=== PATIENT | female | born 1935 | race African-American/Black ===

== ENCOUNTER 2020-06-20 13:07 | Inpatient (IN) | payer MEDICAID, MEDICARE ==
[~2020-06-20] VITALS: Ht 167.6 cm; Wt 62.6 kg
[~2020-06-20 13:07] MED LIST: ALBUL; AMLO5TAB4; ASPI81TA47; ATROVUD; AZIT500T3; MELO-106; METF-414; METO-539; PERCOGESIC; PREDNISONE; QVAR80; SITA100T11; VALS1TAB30; ZOLP5TAB2
[2020-06-20 14:21] LABS: BASOPHILS % 0.5 % (0.0-2.0); EOSINOPHILS % 0.2 % (0.0-5.0); HEMATOCRIT. 26.5 % (36.0-48.0); HEMOGLOBIN. 7.8 g/dL (12.0-16.0); LYMPHOCYTES % 44.1 % (20.0-50.0); MEAN CORPUSCULAR HEMOGLOBIN 21.2 pg (28.0-32.0); MEAN CORPUSCULAR VOLUME 72.3 fL (81.0-99.0); MEAN PLATELET VOLUME 9.8 fl (7.4-10.4); MONOCYTES % 7.9 % (2.0-8.0); NEUTROPHILS % 47.3 % (40.0-76.0); PLATELET 169 x1000/uL (130-400); RED BLOOD CELL COUNT 3.66 mill/uL (4.2-5.4)
[2020-06-20 14:26] LABS: CHLORIDE 108 mEq/L (98-107)
[2020-06-20 14:32] LABS: INR 1.5; PROTHROMBIN TIME 15.1 sec (9.6-11.0)
[2020-06-20] MEDS ORDERED: FUROSEMIDE 20MG/2ML VIAL IVP ONE (15:00)
[2020-06-20 15:16] LABS: PLATELET ESTIMATE NORMAL
[2020-06-20 23:00] VITALS: BP 169/93
[2020-06-21] VITALS (11 sets, daily range): BP systolic 134–170; BP diastolic 60–98
[2020-06-21] MEDS ORDERED: HYDROCODONE/ACETAMINOPHEN 5/325MG TABLET PO PRN
[2020-06-21] MEDS ORDERED: ACETAMINOPHEN 325MG TABLET PO PRN
[2020-06-21] MEDS ORDERED: ONDANSETRON HCL 4MG/2ML INJ IV PRN
[2020-06-21] MEDS ORDERED: IPRATROPIUM/ALBUTEROL 0.5-3(2.5)MG/3ML NEB HHN PRN
[2020-06-21] MEDS ORDERED: DEXTROSE 50% WATER 50ML SYRINGE IV PRN (05:45)
[2020-06-21] MEDS ORDERED: CLONIDINE 0.1MG TABLET PO PRN (05:45)
[2020-06-21] MEDS: BLOOD SUGAR DIAGNOSTIC STRIP TEST SCH ×4 (06:29→21:00)
[2020-06-21] MEDS: INSULIN LISPRO 100 UNITS/ML SUBCUT SCH ×4 (06:29→21:00)
[2020-06-21 07:52] LABS: HEMATOCRIT. 26.9 % (36.0-48.0); HEMOGLOBIN. 7.8 g/dL (12.0-16.0); MEAN CORPUSCULAR HEMOGLOBIN 20.9 pg (28.0-32.0); RED BLOOD CELL COUNT 3.74 mill/uL (4.2-5.4); RED CELL DISTRIBUTION WIDTH 26.3 % (11.6-14.6)
[2020-06-21 08:01] LABS: CHLORIDE 106 mEq/L (98-107)
[2020-06-21 08:13] LABS: HDL CHOLESTEROL 35 mg/dL (40-59)
[2020-06-21 08:15] LABS: LDL CHOLESTEROL 70 mg/dL (5-100)
[2020-06-21 08:16] LABS: CREATINE KINASE 58 IU/L (26-192)
[2020-06-21 08:19] LABS: T4 FREE 1.11 ng/dL (0.76-1.46)
[2020-06-21] MEDS ORDERED: ASPIRIN 81MG EC TABLET PO SCH (09:00)
[2020-06-21] MEDS ORDERED: POTASSIUM CHLORIDE 20MEQ TABLET SR PO NR (11:30)
[2020-06-21 11:56] LABS: TOTAL IRON BINDING CAPACITY 433 ug/dL (250-450)
[2020-06-21] MEDS: AMLODIPINE 5MG TABLET PO SCH ×2 (14:10→21:36)
[2020-06-21] MEDS: FERROUS SULFATE 325MG TABLET PO SCH ×2 (14:10→17:33)
[2020-06-21 14:42] LABS: NUCLEATED RED BLOOD CELLS 2 /100 WBC
[2020-06-21 14:45] LABS: MEAN PLATELET VOLUME 10.2 fl (7.4-10.4); PLATELET 178 x1000/uL (130-400); PLATELET ESTIMATE NORMAL
[2020-06-21] MEDS ORDERED: MORPHINE SULFATE 2 MG/ML CPJ (NOT FOR IM USE) IV PRN (16:00)
[2020-06-21] MEDS ORDERED: POTASSIUM CHLORIDE 20MEQ TABLET SR PO SCH (18:00)
[2020-06-21] MEDS ORDERED: LEVOFLOXACIN 500MG PREMIX 100 ML IV NR (18:00)
[2020-06-21] MEDS: DEXT 5%/0.45% NACL 1000ML 1,000 ML IV SCH (18:51)
[2020-06-21 21:27] LABS: HEMATOCRIT 30.3 % (36.0-48.0); HEMOGLOBIN 9.1 g/dL (12.0-16.0)
[2020-06-21 21:36] LABS: INR 1.5; PROTHROMBIN TIME 15.6 sec (9.6-11.0)
[2020-06-21] MEDS: PANTOPRAZOLE SODIUM 40 MG/VIAL IV SCH (21:36)
[2020-06-22] VITALS (9 sets, daily range): BP systolic 103–169; BP diastolic 55–90
[2020-06-22 06:53] LABS: INR 1.4; PARTIAL THROMBOPLASTIN TIME 26.8 sec (23.4-31.0); PROTHROMBIN TIME 14.1 sec (9.6-11.0)
[2020-06-22 07:02] LABS: HEMATOCRIT. 31.4 % (36.0-48.0); HEMOGLOBIN. 9.3 g/dL (12.0-16.0); MEAN CORPUSCULAR VOLUME 74.2 fL (81.0-99.0); RED BLOOD CELL COUNT 4.23 mill/uL (4.2-5.4); RED CELL DISTRIBUTION WIDTH 25.3 % (11.6-14.6)
[2020-06-22 07:10] LABS: CHLORIDE 108 mEq/L (98-107)
[2020-06-22] MEDS: BLOOD SUGAR DIAGNOSTIC STRIP TEST SCH ×4 (07:38→21:33)
[2020-06-22] MEDS: INSULIN LISPRO 100 UNITS/ML SUBCUT SCH ×4 (07:38→21:00)
[2020-06-22] MEDS: AMLODIPINE 5MG TABLET PO SCH ×2 (08:21→21:11)
[2020-06-22] MEDS: FERROUS SULFATE 325MG TABLET PO SCH ×2 (08:21→16:00)
[2020-06-22] MEDS: PANTOPRAZOLE SODIUM 40 MG/VIAL IV SCH ×2 (08:53→21:12)
[2020-06-22] MEDS: ENALAPRIL 1.25MG/ML VIAL 1ML IV PRN ×2 (08:54→09:28)
[2020-06-22 09:02] LABS: CLARITY URINE CLEAR (CLEAR); COLOR URINE DARK YELLOW (YELLOW); KETONES URINE NEGATIVE (NEGATIVE); LEUKOCYTE ESTERASE URINE NEGATIVE (NEGATIVE); NITRITE URINE NEGATIVE (NEGATIVE); OCCULT BLOOD URINE NEGATIVE (NEGATIVE); PROTEIN URINE 1+ (NEGATIVE); SPECIFIC GRAVITY URINE 1.017 (1.005-1.030)
[2020-06-22] MEDS: DEXT 5%/0.45% NACL 1000ML 1,000 ML IV SCH ×2 (10:01→23:47)
[2020-06-22 11:39] LABS: PLATELET 167 x1000/uL (130-400)
[2020-06-22 11:42] LABS: PLATELET ESTIMATE NORMAL
[2020-06-22] MEDS ORDERED: PHYTONADIONE 10MG/ML AMP SUBCUT SCH (13:30)
[2020-06-22] MEDS: LEVOFLOXACIN 250MG PREMIX 50 ML IV SCH (14:18)
[2020-06-23 04:00] VITALS: BP 146/69
[2020-06-23 06:18] LABS: HEMATOCRIT. 30.9 % (36.0-48.0); HEMOGLOBIN. 9.1 g/dL (12.0-16.0); MEAN CORPUSCULAR HEMOGLOBIN 22.1 pg (28.0-32.0); MEAN CORPUSCULAR VOLUME 74.8 fL (81.0-99.0); PLATELET 164 x1000/uL (130-400); RED BLOOD CELL COUNT 4.13 mill/uL (4.2-5.4); RED CELL DISTRIBUTION WIDTH 26.1 % (11.6-14.6)
[2020-06-23 06:23] LABS: INR 1.3; PROTHROMBIN TIME 13.5 sec (9.6-11.0)
[2020-06-23] MEDS: BLOOD SUGAR DIAGNOSTIC STRIP TEST SCH ×4 (06:26→21:00)
[2020-06-23] MEDS: INSULIN LISPRO 100 UNITS/ML SUBCUT SCH ×4 (06:26→21:00)
[2020-06-23 07:17] LABS: CHLORIDE 109 mEq/L (98-107)
[2020-06-23 08:00] VITALS: BP 149/80
[2020-06-23] MEDS: PANTOPRAZOLE SODIUM 40 MG/VIAL IV SCH ×2 (09:35→20:47)
[2020-06-23] MEDS: FERROUS SULFATE 325MG TABLET PO SCH ×2 (09:35→16:47)
[2020-06-23] MEDS: AMLODIPINE 5MG TABLET PO SCH ×2 (09:36→20:48)
[2020-06-23 10:10] LABS: NUCLEATED RED BLOOD CELLS 1 /100 WBC; PLATELET ESTIMATE NORMAL
[2020-06-23] MEDS ORDERED: MIDAZOLAM HCL 5 MG/5 ML VIAL ONE (11:01)
[2020-06-23] MEDS ORDERED: FENTANYL CITRATE/PF 50MCG/ML 2ML VIAL ONE (11:01)
[2020-06-23] MEDS ORDERED: FENTANYL CITRATE/PF 50MCG/ML 2ML VIAL IV PRN (11:09)
[2020-06-23] MEDS ORDERED: MIDAZOLAM HCL 5 MG/5 ML VIAL IV PRN (11:10)
[2020-06-23] MEDS ORDERED: MAGNESIUM 2 G PREMIX 50 ML IV SCH (11:30)
[2020-06-23 12:00] VITALS: BP 152/79
[2020-06-23] MEDS: SUCRALFATE 1 G/10 ML UDC PO SCH ×3 (12:45→20:48)
[2020-06-23] MEDS: LEVOFLOXACIN 250MG PREMIX 50 ML IV SCH (13:17)
[2020-06-23] MEDS: DEXT 5%/0.45% NACL 1000ML 1,000 ML IV SCH (13:17)
[2020-06-23 16:00] VITALS: BP 155/77
[2020-06-23 20:00] VITALS: BP 115/58
[2020-06-24] VITALS (7 sets, daily range): BP systolic 120–158; BP diastolic 66–80
[2020-06-24] MEDS: DEXT 5%/0.45% NACL 1000ML 1,000 ML IV SCH ×2 (01:10→15:40)
[2020-06-24] MEDS: INSULIN LISPRO 100 UNITS/ML SUBCUT SCH ×3 (06:02→17:21)
[2020-06-24] MEDS: BLOOD SUGAR DIAGNOSTIC STRIP TEST SCH ×3 (06:03→17:20)
[2020-06-24] MEDS: SUCRALFATE 1 G/10 ML UDC PO SCH ×3 (06:10→17:20)
[2020-06-24 06:16] LABS: CHLORIDE 107 mEq/L (98-107)
[2020-06-24 06:24] LABS: HEMATOCRIT 31.5 % (36.0-48.0); HEMOGLOBIN 9.3 g/dL (12.0-16.0); MEAN CORPUSCULAR HEMOGLOBIN 22.2 pg (28.0-32.0); MEAN CORPUSCULAR VOLUME 74.9 fL (81.0-99.0); RED BLOOD CELL COUNT 4.21 mill/uL (4.2-5.4); RED CELL DISTRIBUTION WIDTH 25.8 % (11.6-14.6)
[2020-06-24] MEDS: AMLODIPINE 5MG TABLET PO SCH (08:59)
[2020-06-24] MEDS: FERROUS SULFATE 325MG TABLET PO SCH ×2 (09:00→16:05)
[2020-06-24] MEDS ORDERED: PANTOPRAZOLE 40MG DR TABLET PO SCH (09:00)
[2020-06-24 09:48] LABS: PLATELET 167 x1000/uL (130-400)
[2020-06-24] MEDS ORDERED: LEVOFLOXACIN 250MG TABLET PO SCH (11:00)
[2020-06-24] MEDS ORDERED: SORBITOL 70% SOLN 30ML PO SCH (11:30)
[2020-06-24] MEDS ORDERED: OMEP40CA12 MT (13:09)
[2020-06-24] MEDS ORDERED: SUCR1TAB30 MT (13:09)
[2020-06-24] MEDS ORDERED: NA PHOS,M-B/NA PHOS,DI-BA ENEMA 118ML PR SCH (14:30)
== END 2020-06-24 18:00 | disposition home or self-care (01) | DRG 377 ==
LOC: ER 13:07 → 8WST 16:18 → ENRESERV 20:30
PROVIDERS: ADMIT Ophthalmology; ATTEND Ophthalmology
PROC: 30233N1 Transfusion of Nonautologous Red Blood Cells into Peripheral Vein, Percutaneous Approach (ICD-10-PCS; principal; 2020-06-21)
PROC: 0DB68ZX Excision of Stomach, Via Natural or Artificial Opening Endoscopic, Diagnostic (ICD-10-PCS; 2020-06-23)
DX: K29.71 Gastritis, unspecified, with bleeding (principal); I50.23 Acute on chronic systolic (congestive) heart failure; D68.9 Coagulation defect, unspecified; K31.1 Adult hypertrophic pyloric stenosis; K57.31 Diverticulosis of large intestine without perforation or abscess with bleeding; D72.825 Bandemia; E11.65 Type 2 diabetes mellitus with hyperglycemia; E87.6 Hypokalemia; D50.9 Iron deficiency anemia, unspecified; I08.1 Rheumatic disorders of both mitral and tricuspid valves; Z20.828 Contact with and (suspected) exposure to other viral communicable diseases; I11.0 Hypertensive heart disease with heart failure; I25.10 Atherosclerotic heart disease of native coronary artery without angina pectoris; I27.20 Pulmonary hypertension, unspecified; K59.00 Constipation, unspecified; Z95.5 Presence of coronary angioplasty implant and graft; Z79.84 Long term (current) use of oral hypoglycemic drugs; Z79.899 Other long term (current) drug therapy; Z90.710 Acquired absence of both cervix and uterus; Z87.891 Personal history of nicotine dependence; Z79.51 Long term (current) use of inhaled steroids; R07.9 Chest pain, unspecified
CPT/HCPCS: 36415; 71045; 74176; 80048; 80053; 80061; 81003; 82550; 82728; 82962; 83036; 83540; 83550; 83735; 83880; 84439; 84443; 84484; 85014; 85018; 85025; 85027; 85044; 85049; 85384; 86850; 86900; 86920; 87635; 88305; 88313; 93005; 93306; 93970; 97116; 97162; 97530; 99285; C9113; J1815; J1940; J1956; J2250; J2270; J2405; J3010; J3430; J3475; J3490; P9016